=== PATIENT | female | born 1955 | race African-American/Black ===

== ENCOUNTER 2021-10-21 13:48 | Inpatient (IN) | payer OTHER ==
[~2021-10-21] VITALS: Ht 152.4 cm; Wt 49.9 kg
[2021-10-21 09:30] VITALS: BP 151/68
[2021-10-21] MEDS ORDERED: ACETAMINOPHEN 325MG TABLET PO ONE (14:15)
[2021-10-21 14:34] LABS: BASOPHILS % 0.7 % (0.0-2.0); EOSINOPHILS % 6.2 % (0.0-5.0); HEMATOCRIT. 33.5 % (36.0-48.0); LYMPHOCYTES % 17.6 % (20.0-50.0); MEAN CORPUSCULAR HEMOGLOBIN 33.1 pg (28.0-32.0); MEAN CORPUSCULAR VOLUME 100.4 fL (81.0-99.0); MEAN PLATELET VOLUME 8.5 fl (7.4-10.4); MONOCYTES % 5.1 % (2.0-8.0); NEUTROPHILS % 70.4 % (40.0-76.0); PLATELET 142 x1000/uL (130-400); RED BLOOD CELL COUNT 3.33 mill/uL (4.2-5.4); RED CELL DISTRIBUTION WIDTH 13.5 % (11.6-14.6)
[2021-10-21 14:41] LABS: CHLORIDE 99 mEq/L (98-107)
[2021-10-21] MEDS ORDERED: CLONIDINE 0.1MG TABLET PO PRN (17:15)
[2021-10-21] MEDS ORDERED: IPRATROPIUM/ALBUTEROL 0.5-3(2.5)MG/3ML NEB NEB PRN (17:15)
[2021-10-21] MEDS ORDERED: ACETAMINOPHEN 325MG TABLET PO PRN (17:15)
[2021-10-21] MEDS ORDERED: ONDANSETRON HCL 4MG/2ML INJ IV PRN (17:15)
[2021-10-21] MEDS ORDERED: GUAIFENESIN 200MG/10ML SUGAR FREE UDC PO PRN (17:15)
[2021-10-21] MEDS ORDERED: ZOLPIDEM TARTRATE 5MG TABLET PO PRN (17:15)
[2021-10-21] MEDS ORDERED: MAGNESIUM/ALUMINUM HYDROXIDE/SIMETHICONE 30ML UDC PO PRN (17:15)
[2021-10-21] MEDS ORDERED: DEXTROSE 50% WATER 50ML SYRINGE IV PRN (17:15)
[2021-10-21] MEDS ORDERED: ENOXAPARIN 40MG/0.4ML SYR SUBCUT SCH (17:15)
[2021-10-21] MEDS ORDERED: NITROGLYCERIN 0.4MG TABLET SL SL PRN (17:15)
[2021-10-21] MEDS ORDERED: DOCUSATE SODIUM 100MG CAPSULE PO PRN (17:15)
[2021-10-21] MEDS: ENOXAPARIN 30MG/0.3ML SYR SUBCUT SCH (18:11)
[2021-10-21] MEDS: INSULIN LISPRO 100 UNITS/ML SUBCUT SCH ×2 (18:20→21:00)
[2021-10-21 18:49] LABS: ETHANOL BLOOD < 10 mg/dL
[2021-10-21 18:51] LABS: LDL CHOLESTEROL 62 mg/dL (5-100); TOTAL IRON BINDING CAPACITY 181 ug/dL (250-450)
[2021-10-21 18:53] LABS: HDL CHOLESTEROL 36 mg/dL (40-59)
[2021-10-21 18:57] LABS: FOLIC ACID (FOLATE) SERUM 15.6 ng/mL (>5.38)
[2021-10-21] MEDS: BLOOD SUGAR DIAGNOSTIC STRIP TEST SCH (21:00)
[2021-10-21 21:30] VITALS: BP 151/68
[2021-10-21] MEDS: FAMOTIDINE 20MG TABLET PO SCH (22:49)
[2021-10-21 23:24] LABS: CREATINE KINASE MB FRACTION 5.2 ng/mL (0.5-3.6)
[2021-10-22] VITALS: BP 124/55
[2021-10-22 04:00] VITALS: BP 128/58
[2021-10-22] MEDS: BLOOD SUGAR DIAGNOSTIC STRIP TEST SCH ×3 (06:06→21:00)
[2021-10-22] MEDS: INSULIN LISPRO 100 UNITS/ML SUBCUT SCH ×3 (06:19→21:00)
[2021-10-22 06:51] LABS: BASOPHILS % 1.3 % (0.0-2.0); EOSINOPHILS % 10.9 % (0.0-5.0); HEMATOCRIT. 32.7 % (36.0-48.0); HEMOGLOBIN. 10.9 g/dL (12.0-16.0); LYMPHOCYTES % 23.1 % (20.0-50.0); MEAN CORPUSCULAR HEMOGLOBIN 33.1 pg (28.0-32.0); MEAN CORPUSCULAR VOLUME 99.6 fL (81.0-99.0); MEAN PLATELET VOLUME 8.4 fl (7.4-10.4); MONOCYTES % 8.1 % (2.0-8.0); NEUTROPHILS % 56.6 % (40.0-76.0); PLATELET 121 x1000/uL (130-400); RED BLOOD CELL COUNT 3.29 mill/uL (4.2-5.4); RED CELL DISTRIBUTION WIDTH 13.6 % (11.6-14.6)
[2021-10-22] MEDS ORDERED: SEVELAMER CARBONATE 800 MG TABLET PO SCH (07:15)
[2021-10-22 07:17] LABS: CHLORIDE 99 mEq/L (98-107)
[2021-10-22 07:44] LABS: PHOSPHORUS 5.4 mg/dL (2.5-4.9)
[2021-10-22 07:45] LABS: CREATINE KINASE 52 IU/L (26-192)
[2021-10-22 08:00] VITALS: BP 158/67
[2021-10-22] MEDS: AMLODIPINE 10MG TABLET PO SCH (09:16)
[2021-10-22] MEDS: ASPIRIN 325MG EC TABLET PO SCH (09:16)
[2021-10-22] MEDS: INSULIN REGULAR (HUMULIN R) 300UNITS/3ML VIAL IV SCH ×2 (09:30→10:24)
[2021-10-22] MEDS: DEXTROSE 50% WATER 50ML SYRINGE IV SCH ×2 (09:30→10:23)
[2021-10-22] MEDS: SEVELAMER CARBONATE 800 MG TABLET PO SCH (13:20)
[2021-10-22 13:27] LABS: INR 1.2; PROTHROMBIN TIME 12.4 sec (9.6-11.0)
[2021-10-22] MEDS ORDERED: HEPARIN 1000 UNITS/ML 10ML ONE (13:47)
[2021-10-22] MEDS ORDERED: LIDOCAINE HCL 1% 20ML VIAL (Pyxis) INJ ONE (13:47)
[2021-10-22 16:00] VITALS: BP 164/79
[2021-10-22 18:47] LABS: HEPATITIS B SURFACE ANTIGEN NEGATIVE
[2021-10-22 20:00] VITALS: BP 173/67
[2021-10-22] MEDS: FAMOTIDINE 20MG TABLET PO SCH (21:45)
[2021-10-22] MEDS: CARVEDILOL 6.25 MG TABLET PO SCH (21:47)
[2021-10-23] VITALS (19 sets, daily range): BP systolic 121–162; BP diastolic 51–75
[2021-10-23] MEDS: ACETAMINOPHEN 325MG TABLET PO PRN (02:36)
[2021-10-23] MEDS: BLOOD SUGAR DIAGNOSTIC STRIP TEST SCH ×4 (06:37→21:00)
[2021-10-23] MEDS: INSULIN LISPRO 100 UNITS/ML SUBCUT SCH ×4 (06:37→21:39)
[2021-10-23] MEDS ORDERED: ALTEPLASE 2MG/VIAL ITC SCH (07:00)
[2021-10-23] MEDS: SEVELAMER CARBONATE 800 MG TABLET PO SCH ×4 (07:45→18:15)
[2021-10-23] MEDS ORDERED: CEFAZOLIN 1000MG PREMIX 50 ML IV SCH (08:30)
[2021-10-23] MEDS ORDERED: CEFAZOLIN 1000MG PREMIX 50 ML IV ONE (08:38)
[2021-10-23] MEDS: ASPIRIN 325MG EC TABLET PO SCH (08:57)
[2021-10-23] MEDS: CARVEDILOL 6.25 MG TABLET PO SCH ×2 (08:57→21:39)
[2021-10-23] MEDS: AMLODIPINE 10MG TABLET PO SCH (08:57)
[2021-10-23] MEDS ORDERED: DIAZEPAM 2 MG TABLET PO NR (09:00)
[2021-10-23] MEDS ORDERED: LIDOCAINE HCL 1% 20ML VIAL (Pyxis) INJ ONE (09:49)
[2021-10-23] MEDS ORDERED: HEPARIN 1000 UNITS/ML 10ML ONE (09:49)
[2021-10-23] MEDS ORDERED: IOHEXOL-300 100 ML BOTTLE ONE (09:49)
[2021-10-23] MEDS ORDERED: FENTANYL CITRATE/PF 50MCG/ML 2ML VIAL ONE (10:20)
[2021-10-23] MEDS ORDERED: IOHEXOL-300 50 ML BOTTLE IV ONE ×2 (10:45→11:00)
[2021-10-23] MEDS ORDERED: FENTANYL CITRATE/PF 50MCG/ML 2ML VIAL IV ONE (10:45)
[2021-10-23] MEDS: ENOXAPARIN 30MG/0.3ML SYR SUBCUT SCH ×2 (18:15→18:17)
[2021-10-23] MEDS: FAMOTIDINE 20MG TABLET PO SCH (21:40)
[2021-10-24] VITALS: BP 164/62
[2021-10-24] MEDS: ACETAMINOPHEN 325MG TABLET PO PRN (00:42)
[2021-10-24 04:00] VITALS: BP 156/75
[2021-10-24] MEDS ORDERED: LEVOFLOXACIN 500MG TABLET PO NR (08:30)
[2021-10-24] MEDS: ASPIRIN 325MG EC TABLET PO SCH (09:17)
[2021-10-24] MEDS: SEVELAMER CARBONATE 800 MG TABLET PO SCH (09:17)
[2021-10-24] MEDS: CARVEDILOL 6.25 MG TABLET PO SCH (09:17)
[2021-10-24] MEDS: AMLODIPINE 10MG TABLET PO SCH (09:20)
[2021-10-24 12:00] VITALS: BP 141/59
[2021-10-24] MEDS: BLOOD SUGAR DIAGNOSTIC STRIP TEST SCH (12:14)
[2021-10-24] MEDS: INSULIN LISPRO 100 UNITS/ML SUBCUT SCH (12:14)
[2021-10-24 14:50] VITALS: BP 141/59
== END 2021-10-24 16:00 | disposition home or self-care (01) | DRG 182 ==
LOC: ER 13:48 → 5WST 16:55 → EDBEDREQ 16:57 → EDBEDREQTM 16:57 → ENRESERV 20:11
PROVIDERS: ADMIT Internal Medicine; ATTEND Internal Medicine
PROC: 02HV33Z Insertion of Infusion Device into Superior Vena Cava, Percutaneous Approach (ICD-10-PCS; 2021-10-22)
PROC: B548ZZA Ultrasonography of Superior Vena Cava, Guidance (ICD-10-PCS; 2021-10-22)
PROC: 05743DZ Dilation of Left Innominate Vein with Intraluminal Device, Percutaneous Approach (ICD-10-PCS; principal; 2021-10-23)
PROC: B51N1ZZ Fluoroscopy of Left Upper Extremity Veins using Low Osmolar Contrast (ICD-10-PCS; 2021-10-23)
PROC: 3E03317 Introduction of Other Thrombolytic into Peripheral Vein, Percutaneous Approach (ICD-10-PCS; 2021-10-23)
DX: T82.868A Thrombosis due to vascular prosthetic devices, implants and grafts, initial encounter (principal); I21.4 Non-ST elevation (NSTEMI) myocardial infarction; I12.0 Hypertensive chronic kidney disease with stage 5 chronic kidney disease or end stage renal disease; E44.0 Moderate protein-calorie malnutrition; E87.1 Hypo-osmolality and hyponatremia; E11.36 Type 2 diabetes mellitus with diabetic cataract; D63.1 Anemia in chronic kidney disease; E11.22 Type 2 diabetes mellitus with diabetic chronic kidney disease; F41.9 Anxiety disorder, unspecified; H33.20 Serous retinal detachment, unspecified eye; H54.8 Legal blindness, as defined in USA; H91.92 Unspecified hearing loss, left ear; N18.6 End stage renal disease; Z20.822 Contact with and (suspected) exposure to COVID-19; E11.51 Type 2 diabetes mellitus with diabetic peripheral angiopathy without gangrene; Y83.8 Other surgical procedures as the cause of abnormal reaction of the patient, or of later complication, without mention of misadventure at the time of the procedure; Y83.2 Surgical operation with anastomosis, bypass or graft as the cause of abnormal reaction of the patient, or of later complication, without mention of misadventure at the time of the procedure; Z79.4 Long term (current) use of insulin; Z82.49 Family history of ischemic heart disease and other diseases of the circulatory system; Z83.3 Family history of diabetes mellitus; Z99.2 Dependence on renal dialysis; Y92.89 Other specified places as the place of occurrence of the external cause; Z68.21 Body mass index [BMI] 21.0-21.9, adult
CPT/HCPCS: 36415; 36556; 36905; 71045; 76937; 77001; 80053; 80061; 80320; 82550; 82553; 82607; 82746; 82962; 83036; 83540; 83550; 83735; 84100; 84145; 84443; 84484; 85025; 86705; 86709; 86803; 87015; 87045; 87340; 87426; 87427; 87449; 89055; 93005; 93306; 93970; 93971; 99152; 99153; 99285; C1725; C1752; C1766; C1769; C1887; C1893; J0690; J1644; J1650; J1815; J2997; J3010; J3490; L8514; Q9967; G0480; G0500